=== PATIENT | male | born 1940 | race Caucasian/White ===

== ENCOUNTER → 2021-02-14 13:20 | Outpatient (CLI) | payer MEDICARE, SELFPAY ==
--- NOTE | ~2021-02-14 | XR_ITS ---
XR_[id number] DATE: 02/14/2021 13:45 INDICATION: Neck pain TECHNIQUE: AP, open-mouth, lateral, swimmer views COMPARISON: None FINDINGS: C1 and C2 are normally aligned and the odontoid process is intact. There is degenerative disease throughout the cervical spine, mild at C2-3, moderate at C5-6 and sever e at C3-4, C4-5 and C6-7. No fracture or dislocation or locked facet or prevertebral soft tissue swelling is evident. There is uncovertebral joint spurring throughout the mid and lower cervical spine. 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 Reviewed, dictated and finalized at [facility].
== END ==
PROVIDERS: PCP Family Medicine; Visit Provider Family Medicine
DX: M54.2 Cervicalgia (principal)
CPT/HCPCS: 72040

== ENCOUNTER 2022-05-21 00:25 | Day surgery (SDC) | payer MEDICARE, SELFPAY ==
[2022-05-03 13:04] VITALS: BMI 29.2
[2022-05-21 09:11] VITALS: BP 142/67; PULSE 65; RESP 18; TEMP 36.4; O2SAT 98
[2022-05-21] MEDS: LACTATED RINGERS 1,000 ML 150 ML IV CONT (09:14)
--- NOTE | 2022-05-21 09:44 | PM.IMHP ---
H&P: HPI History of Present Illness Date/Time: 05/21/22 09:44 Chief Complaint: History of colon polyp. Narrative: This is an 82-year-old white male patient who has a history of adenomatous colon polyp removed from the colon in 2014. Patient presents today for neoplasia screening follow-up colonoscopy. He reports his current weight appetite bowel movements are normal. He denies abdominal pain. He has had no bleeding. He has begun to have some memory loss issues. Family history is noncontributory. Review of Systems Review of Systems: Review of systems noncontributory. 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/ Dr. 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 Hx of umbilical hernia repair 1994 Family History Family History Father Heart attack Mother Lung abscess Oxygen dependent Social History Social History Smoking status: Former smoker Tobacco type: pipe Second hand tobacco smoke exposure: No Alcohol intake: former Substance use: never Substance use type: does not use Living arrangements: with family Gender identity (if verbalized by the patient): Male Spiritual care concerns: No Meds Home Medications and Allergies Home Medications Medication Instructions Recorded Confirmed Type finasteride 5 mg tablet 5 mg PO DAILY 09/26/20 05/21/22 History ascorbate calcium (vitamin C) 500 500 mg PO DAILY 02/13/21 05/21/22 History mg tablet calcium carbonate 600 mg calcium 600 mg PO DAILY 02/13/21 05/21/22 History (1,500 mg) tablet (Calcium) cholecalciferol (vitamin D3) 25 25 mcg PO DAILY 02/13/21 05/21/22 History mcg (1,000 unit) capsule vitamin B12 500 mcg-folic acid 400 1 tablet PO DAILY 02/13/21 05/21/22 History mcg tablet lisinopril 20 1 tablet PO DAILY #90 tabs 08/03/21 05/21/22 Rx mg-hydrochlorothiazide 25 mg tablet simvastatin 40 mg tablet 40 mg PO QHS #90 tabs 01/01/22 05/21/22 Rx Allergies Allergy/AdvReac Type Severity Reaction Status Date / Time No Known Allergies Allergy Verified 05/21/22 09:10 Vital Signs Vital Signs - 24 hr 05/21/22 09:11 Temperature 97.6 F Pulse Rate 65 Respiratory Rate 18 Blood Pressure 142/67 H Pulse Oximetry 98 Oxygen Delivery Room Air Exam Narrative: Physical exam reveals patient to be alert. Vital signs stable. HEENT exam is unremarkable. Patient is anicteric. Lungs are clear to auscultation and percussion. Heart is without murmur or extra sounds. Abdominal exam bowel sounds are present soft nontender with no organomegaly. Digital external rectal exam is normal. Assessment and Plan Assessment and plan (1) History of colon polyps: Code(s): Z86.010 - Personal history of colonic polyps Status: Acute Assessment and Plan: Patient has a history of a small tubular adenomatous polyp removed from the colon 2014. He presents today for follow-up examination. Further recommendations will be given after colonoscopy.
--- NOTE | 2022-05-21 10:05 | WPDANESEPPF ---
Anes - Initial Pre Proc Eval Procedure: Operation Date: 05/21/22 10:30 Proposed Procedures p Screening Colonoscopy - Humza Ritchie MD Date/Time: 05/21/22 10:05 Surgeon: uHmza Ritchie MD Pre Op Diagnosis: hx of colon polyps Patient Data Age: 82 Gender: M Height: 1.75 m Weight: 88 kg Last Vital Signs Temp 36.4 C 05/21/22 09:11 Pulse 65 05/21/22 09:11 Resp 18 05/21/22 09:11 BP 142/67 H 05/21/22 09:11 Pulse Ox 98 05/21/22 09:11 O2 Del Method Room Air 05/21/22 09:11 Allergies Allergy/AdvReac Type Severity Reaction Status Date / Time No Known Allergies Allergy Verified 05/21/22 09:10 Home Medications Medication Instructions Recorded Confirmed Type finasteride 5 mg tablet 5 mg PO DAILY 09/26/20 05/21/22 History ascorbate calcium (vitamin C) 500 500 mg PO DAILY 02/13/21 05/21/22 History mg tablet calcium carbonate 600 mg calcium 600 mg PO DAILY 02/13/21 05/21/22 History (1,500 mg) tablet (Calcium) cholecalciferol (vitamin D3) 25 25 mcg PO DAILY 02/13/21 05/21/22 History mcg (1,000 unit) capsule vitamin B12 500 mcg-folic acid 400 1 tablet PO DAILY 02/13/21 05/21/22 History mcg tablet lisinopril 20 1 tablet PO DAILY #90 tabs 08/03/21 05/21/22 Rx mg-hydrochlorothiazide 25 mg tablet simvastatin 40 mg tablet 40 mg PO QHS #90 tabs 01/01/22 05/21/22 Rx Patient hx anesthesia problems: none Family hx anesthesia problems: none Results Review: All pre-operative results and documents have been reviewed as part of the pre-operative evaluation. 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/ Dr. 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 Hx of umbilical hernia repair 1994 Family History Family History Father Heart attack Mother Lung abscess Oxygen dependent Social History Social History Smoking status: Former smoker Tobacco type: pipe Second hand tobacco smoke exposure: No Alcohol intake: former Substance use: never Substance use type: does not use Living arrangements: with family Gender identity (if verbalized by the patient): Male Spiritual care concerns: No Anes - Eval Final PreProcedure Day of Procedure 05/21/22 10:05 Patient weight: overweight Heart: regular rate and rhythm Lungs: clear to auscultation Neurological: alert and oriented ASA classification: III Emergent: no Anesthesia type and monitoring: general GIVS and standard monitoring Results Review: All pre-operative results and documents have been reviewed as part of the pre-operative evaluation. Informed Consent: The patient's anesthetic plan and its attendant risks and benefits were discussed with the patient/family/POA. Questions were solicited and answers provided to the satisfaction of the patient/family/POA.
[2022-05-21 10:54] VITALS: BP 100/68; PULSE 74; RESP 24; O2SAT 98
[2022-05-21 11:04] VITALS: BP 137/76; PULSE 63; RESP 17; O2SAT 100
[2022-05-21 11:16] VITALS: BP 143/71; PULSE 55; RESP 17; O2SAT 99
== END 2022-05-21 11:19 | disposition home or self-care (01) ==
PROVIDERS: PCP Family Medicine; Visit Provider Internal Medicine Gastroenterology
PROC: 0DJD8ZZ Inspection of Lower Intestinal Tract, Via Natural or Artificial Opening Endoscopic (ICD-10-PCS; CPT 45378; principal; 2022-05-21 10:30)
DX: Z12.11 Encounter for screening for malignant neoplasm of colon (principal); K64.8 Other hemorrhoids; K57.30 Diverticulosis of large intestine without perforation or abscess without bleeding; Z86.010 Personal history of colon polyps; I10 Essential (primary) hypertension; E78.5 Hyperlipidemia, unspecified; G47.33 Obstructive sleep apnea (adult) (pediatric); R73.03 Prediabetes; Z85.72 Personal history of non-Hodgkin lymphomas; Z87.891 Personal history of nicotine dependence
CPT/HCPCS: G0105; J2704; J7120

== ENCOUNTER 2022-10-16 11:44 | Outpatient (CLI) | payer MEDICARE, SELFPAY ==
[2022-10-16 19:44] LABS: Hemoglobin A1C 5.4 % (<5.7)
[2022-10-16 19:56] LABS: Basophils Absolute Auto 0.1 K/mm3 (0.0-0.1); Basophils Percent Auto 1.3 % (0.2-1.2); Eosinophils Absolute Auto 0.3 K/mm3 (0-0.3); Eosinophils Percent Auto 3.2 % (0-4.4); Hemoglobin 14.4 g/dL (14.0-18.0); Immature Granulocyte Absolute 0.04 K/mm3 (0.00-0.031); Immature Granulocyte Percent A 0.5 % (0-0.5); Immature Platelet Fraction Pct 5.8 % (0.9-11.2); Lymphocytes Absolute Auto 2.36 K/mm3 (0.9-3.2); Lymphocytes Percent Auto 28.4 % (18.3-44.2); Mean Corpuscular HGB Conc 32.7 g/dl (32-36); Mean Corpuscular Hemoglobin 31.8 pg (26-34); Mean Corpuscular Volume 97.1 fl (80-100); Mean Platelet Volume 11.8 fl (7.4-10.4); Monocytes Percent Auto 11.5 % (2.6-8.5); Neutrophils Absolute Auto 4.6 K/mm3 (1.3-6.7); Neutrophils Percent Auto 55.1 % (45.5-73.1); Platelet Count Result 263 k/mm3 (150-375); Red Blood Count 4.53 M/mm3 (4.6-6.20); Red Cell Distribution Width 14.9 % (11.5-14.5); White Blood Count 8.3 K/mm3 (4.5-10.0)
[2022-10-16 19:59] LABS: Alanine Aminotransferase 22 U/L (6-50); Albumin Level 4.1 g/dL (3.5-5.1); Alkaline Phosphatase 78 U/L (38-126); Anion Gap 9 mmol/L (8-16); Aspartate Amino Transferase 30 U/L (17-59); Bilirubin,Total 0.8 mg/dL (0.2-1.3); Blood Urea Nitrogen 17 mg/dL (9-20); Calcium 9.6 mg/dL (8.4-10.2); Carbon Dioxide 29 mmol/L (22-30); Chloride 101 mmol/L (98-107); Cholesterol 132 mg/dL (0-200); Estimated Glomerular Filt Rate 58; Glucose 99 mg/dL (65-110); HDL Direct 48 mg/dL; Potassium 3.9 mmol/L (3.4-5.0); Sodium 139 mmol/L (137-145); Triglycerides 89 mg/dL (<150)
[2022-10-16 20:09] LABS: Platelet Estimate Adequate (Adequate)
[2022-10-16 20:10] LABS: Acanthocytes 1+ (NORMAL); LDL Cholesterol Direct 57 mg/dL; Ovalocytes 1+ (NORMAL)
[2022-10-16 20:11] LABS: Schistocytes None Seen (NORMAL)
[2022-10-16 20:23] LABS: Vitamin D 25 Hydroxy 39.6 ng/mL
== END 2022-10-16 11:45 | disposition home or self-care (01) ==
LOC: ANHGOSHLAB 11:50
PROVIDERS: PCP Family Medicine; Visit Provider Family Medicine
DX: E78.5 Hyperlipidemia, unspecified (principal); I10 Essential (primary) hypertension; Z79.899 Other long term (current) drug therapy; R73.03 Prediabetes; Z12.5 Encounter for screening for malignant neoplasm of prostate; E55.9 Vitamin D deficiency, unspecified; E53.8 Deficiency of other specified B group vitamins
CPT/HCPCS: 36415; 80053; 80061; 82306; 82607; 83036; 84153; 84443; 85025; 85055; G0103

== ENCOUNTER 2022-12-06 10:38 | Emergency (ER) | payer MEDICARE, SELFPAY ==
--- NOTE | ~2022-12-06 | XR_ITS ---
Cervical Spine: AP, lateral, open-mouth views Clinical History: Pain COMPARISON: 02/14/2021 Findings: The normal lordotic curve is maintained. No fracture or subluxation identified. There is mo derate degenerative disc narrowing at C4-C5 and C6-C7. There is mild degenerative disc narrowing at C 3-C4. Pre-vertebral soft tissues are unremarkable. Impression: Degenerative changes, as above, similar to prior exam. No acute abnormality seen. Reviewed, dictated and finalized at location . [employer] Impression: Degenerative changes, as above, similar to prior exam. No acute abnormality seen.
[2022-12-06 10:48] VITALS: BP 152/76; PULSE 62; RESP 16; TEMP 36.4; O2SAT 98
--- NOTE | 2022-12-06 10:54 | ED.GENADULT ---
HPI - General Adult General Chief complaint: Neck Pain/Injury Stated complaint: NECK PAIN Time Seen by Provider: 12/06/22 10:54 Source: patient Mode of arrival: ambulatory Limitations: no limitations History of Present Illness HPI narrative: 82-year-old male presents with complaint of posterior neck pain for several weeks. Reports that he had same problem last year saw his PCP and was sent to physical therapy. He states that physical therapy never helped. He has been doing stretches on his own without any relief. He intermittently takes Tylenol or ibuprofen but does not want to take too much of an [id number] medication. He states neck muscles are tight and when he opens his mouth too far to eat it makes the pain worse. Denies jaw pain. No injury. Ambulatory with steady gait. Denies dizziness, headache, vision changes. Afebrile. All systems reviewed and negative except as noted above. Related Data Home Medications Medication Instructions Recorded Confirmed finasteride 5 mg tablet 5 mg PO DAILY 09/26/20 12/06/22 ascorbate calcium (vitamin C) 500 500 mg PO DAILY 02/13/21 12/06/22 mg tablet calcium carbonate 600 mg calcium 600 mg PO DAILY 02/13/21 12/06/22 (1,500 mg) tablet (Calcium) cholecalciferol (vitamin D3) 25 25 mcg PO DAILY 02/13/21 12/06/22 mcg (1,000 unit) capsule vitamin B12 500 mcg-folic acid 400 1 tablet PO DAILY 02/13/21 12/06/22 mcg tablet Allergies Allergy/AdvReac Type Severity Reaction Status Date / Time No Known Allergies Allergy Verified 10/16/22 10:21 Review of Systems Review of Systems: CONSTITUTIONAL: Denies fever, chills, or sweats. EYES: Denies visual changes, redness, or discharge. ENT: Denies rhinorrhea, congestion, sore throat, or otalgia. CARDIOVASCULAR: Denies chest pain, palpitations, or edema. RESPIRATORY: Denies cough or dyspnea. GASTROINTESTINAL: Denies abdominal pain, nausea, vomiting, or diarrhea. GENITOURINARY: Denies dysuria or hematuria. SKIN: Denies rash or itching. MUSCULOSKELETAL: Denies back pain, joint pain, or myalgia. Reports posterior neck pain NEUROLOGIC: Denies headache, numbness, or weakness. PSYCHIATRIC: Denies anxiety or depression. All other systems reviewed are negative, except as documented in HPI. 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/ Dr. 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 Hx of umbilical hernia repair 1994 Family History Family History Father Heart attack Mother Lung abscess Oxygen dependent Social History Social History Smoking status: Former smoker Tobacco type: pipe Second hand tobacco smoke exposure: No Alcohol intake: former Substance use: never Substance use type: does not use Lack of Transportation: No Lack of Food: Never True Current Housing: I Have Housing Concerned About Future Housing: No Difficulty Paying Gas/Electric Bills: No Difficulty Paying for Meds: No Currently Unemployed: No Education: Decline to Answer Difficulty w/ Childcare or Family Care: No Gender identity (if verbalized by the patient): Male
== END 2022-12-06 11:49 | disposition home or self-care (01) ==
PROVIDERS: Emergency Provider Nurse Practitioner Family; PCP Family Medicine
DX: S16.1XXA Strain of muscle, fascia and tendon at neck level, initial encounter (principal); X58.XXXA Exposure to other specified factors, initial encounter; M47.812 Spondylosis without myelopathy or radiculopathy, cervical region; Z87.891 Personal history of nicotine dependence; E78.5 Hyperlipidemia, unspecified; I10 Essential (primary) hypertension; R73.03 Prediabetes; Z85.72 Personal history of non-Hodgkin lymphomas
CPT/HCPCS: 72050; 99213; G0463

== ENCOUNTER 2023-04-16 10:22 | Outpatient (CLI) | payer MEDICARE, SELFPAY ==
[2023-04-16 20:51] LABS: Alanine Aminotransferase 25 U/L (6-50); Albumin Level 3.8 g/dL (3.5-5.1); Alkaline Phosphatase 63 U/L (38-126); Anion Gap 4 mmol/L (8-16); Aspartate Amino Transferase 47 U/L (17-59); Bilirubin,Total 0.8 mg/dL (0.2-1.3); Blood Urea Nitrogen 18 mg/dL (9-20); Calcium 8.8 mg/dL (8.4-10.2); Carbon Dioxide 34 mmol/L (22-30); Chloride 103 mmol/L (98-107); Estimated Glomerular Filt Rate 58; Glucose 81 mg/dL (65-110); Potassium 4.2 mmol/L (3.4-5.0); Sodium 141 mmol/L (137-145)
[2023-04-16 21:20] LABS: Hemoglobin A1C 5.3 % (<5.7)
== END 2023-04-16 10:23 | disposition home or self-care (01) ==
LOC: ANHGOSHLAB 10:23
PROVIDERS: PCP Family Medicine; Visit Provider Family Medicine
DX: I10 Essential (primary) hypertension (principal); R73.03 Prediabetes
CPT/HCPCS: 36415; 80053; 83036

== ENCOUNTER 2023-10-22 10:16 | Outpatient (CLI) | payer MEDICARE, SELFPAY ==
[2023-10-22 12:03] LABS: Basophils Absolute Auto 0.1 K/mm3 (0.0-0.1); Basophils Percent Auto 1.1 % (0.2-1.2); Eosinophils Absolute Auto 0.4 K/mm3 (0-0.3); Eosinophils Percent Auto 3.5 % (0-4.4); Hematocrit 42.5 % (42.0-52.0); Hemoglobin 14.2 g/dL (14.0-18.0); Immature Granulocyte Absolute 0.06 K/mm3 (0.00-0.031); Immature Granulocyte Percent A 0.5 % (0-0.5); Lymphocytes Absolute Auto 2.54 K/mm3 (0.9-3.2); Lymphocytes Percent Auto 22.9 % (18.3-44.2); Mean Corpuscular HGB Conc 33.4 g/dl (32-36); Mean Corpuscular Hemoglobin 30.9 pg (26-34); Mean Corpuscular Volume 92.6 fl (80-100); Mean Platelet Volume 11.1 fl (7.4-10.4); Monocytes Absolute Auto 1.3 K/mm3 (0.1-0.6); Monocytes Percent Auto 11.8 % (2.6-8.5); Neutrophils Absolute Auto 6.7 K/mm3 (1.3-6.7); Neutrophils Percent Auto 60.2 % (45.5-73.1); Platelet Count Result 282 k/mm3 (150-375); Red Blood Count 4.59 M/mm3 (4.6-6.20); Red Cell Distribution Width 13.9 % (11.5-14.5); White Blood Count 11.1 K/mm3 (4.5-10.0)
[2023-10-22 12:15] LABS: Alanine Aminotransferase 24 U/L (6-50); Albumin Level 3.7 g/dL (3.5-5.1); Alkaline Phosphatase 83 U/L (38-126); Anion Gap 10 mmol/L (8-16); Aspartate Amino Transferase 36 U/L (17-59); Bilirubin,Total 1.2 mg/dL (0.2-1.3); Blood Urea Nitrogen 14 mg/dL (9-20); Calcium 9.1 mg/dL (8.4-10.2); Carbon Dioxide 29 mmol/L (22-30); Chloride 103 mmol/L (98-107); Cholesterol 132 mg/dL (0-200); Estimated Glomerular Filt Rate > 60; Glucose 105 mg/dL (65-110); HDL Direct 35 mg/dL; Potassium 3.3 mmol/L (3.4-5.0); Sodium 142 mmol/L (137-145); Triglycerides 100 mg/dL (<150)
[2023-10-22 12:26] LABS: LDL Cholesterol Direct 71 mg/dL
[2023-10-22 12:45] LABS: Prostate Specific Antigen 3.8 ng/mL (< OR = 4.0)
[2023-10-22 12:47] LABS: Hemoglobin A1C 5.5 % (<5.7)
[2023-10-22 13:02] LABS: Vitamin D 25 Hydroxy 55.4 ng/mL
== END 2023-10-22 10:17 | disposition home or self-care (01) ==
PROVIDERS: PCP Family Medicine; Visit Provider Family Medicine
DX: E78.5 Hyperlipidemia, unspecified (principal); I10 Essential (primary) hypertension; E55.9 Vitamin D deficiency, unspecified; R73.03 Prediabetes; E53.8 Deficiency of other specified B group vitamins; Z12.5 Encounter for screening for malignant neoplasm of prostate
CPT/HCPCS: 36415; 80053; 80061; 82306; 82607; 83036; 84153; 84443; 85025; G0103

== ENCOUNTER 2024-07-14 15:55 | Outpatient (CLI) | payer MEDICARE, SELFPAY ==
[2024-07-14 20:50] LABS: Alanine Aminotransferase 19 U/L (6-50); Albumin Level 3.8 g/dL (3.5-5.1); Alkaline Phosphatase 63 U/L (38-126); Anion Gap 6 mmol/L (4-12); Aspartate Amino Transferase 36 U/L (17-59); Bilirubin,Total 0.7 mg/dL (0.2-1.3); Blood Urea Nitrogen 21 mg/dL (9-20); Calcium 9.2 mg/dL (8.4-10.2); Carbon Dioxide 32 mmol/L (22-30); Chloride 101 mmol/L (98-107); Estimated Glomerular Filt Rate 52; Glucose 97 mg/dL (65-110); Potassium 3.9 mmol/L (3.4-5.0); Sodium 139 mmol/L (137-145)
[2024-07-14 22:21] LABS: Hemoglobin A1C 5.6 % (<5.7)
== END 2024-07-14 15:56 | disposition home or self-care (01) ==
LOC: ANHGOSHLAB 15:56
PROVIDERS: PCP Family Medicine; Visit Provider Family Medicine
DX: I10 Essential (primary) hypertension (principal); R73.03 Prediabetes
CPT/HCPCS: 36415; 80053; 83036

== ENCOUNTER 2024-11-01 15:38 | Outpatient (CLI) | payer MEDICARE, SELFPAY ==
[2024-11-01 19:59] LABS: Basophils Absolute Auto 0.1 K/mm3 (0.0-0.1); Basophils Percent Auto 1.2 % (0.2-1.2); Eosinophils Absolute Auto 0.4 K/mm3 (0-0.3); Eosinophils Percent Auto 3.5 % (0-4.4); Hematocrit 42.8 % (42.0-52.0); Hemoglobin 14.6 g/dL (14.0-18.0); Immature Granulocyte Absolute 0.05 K/mm3 (0.00-0.031); Immature Granulocyte Percent A 0.5 % (0-0.5); Lymphocytes Percent Auto 26.3 % (18.3-44.2); Mean Corpuscular HGB Conc 34.1 g/dl (32-36); Mean Corpuscular Hemoglobin 31.5 pg (26-34); Mean Corpuscular Volume 92.4 fl (80-100); Monocytes Absolute Auto 1.2 K/mm3 (0.1-0.6); Monocytes Percent Auto 11.4 % (2.6-8.5); Neutrophils Absolute Auto 5.9 K/mm3 (1.3-6.7); Neutrophils Percent Auto 57.1 % (45.5-73.1); Platelet Count Result 275 k/mm3 (150-375); Red Blood Count 4.63 M/mm3 (4.6-6.20); Red Cell Distribution Width 14.8 % (11.5-14.5); White Blood Count 10.3 K/mm3 (4.5-10.0)
[2024-11-01 20:06] LABS: Alanine Aminotransferase 23 U/L (6-50); Albumin Level 4.1 g/dL (3.5-5.1); Alkaline Phosphatase 91 U/L (38-126); Anion Gap 4 mmol/L (4-12); Aspartate Amino Transferase 56 U/L (17-59); Bilirubin,Total 1.1 mg/dL (0.2-1.3); Blood Urea Nitrogen 21 mg/dL (9-20); Calcium 9.6 mg/dL (8.4-10.2); Carbon Dioxide 33 mmol/L (22-30); Chloride 103 mmol/L (98-107); Cholesterol 133 mg/dL (0-200); Estimated Glomerular Filt Rate > 60; Glucose 94 mg/dL (65-110); HDL Direct 48 mg/dL; Potassium 3.7 mmol/L (3.4-5.0); Sodium 140 mmol/L (137-145); Triglycerides 84 mg/dL (<150)
[2024-11-01 20:17] LABS: LDL Cholesterol Direct 54 mg/dL
[2024-11-01 20:29] LABS: Vitamin D 25 Hydroxy 45.7 ng/mL
[2024-11-01 20:38] LABS: Prostate Specific Antigen 4.5 ng/mL (< OR = 4.0)
[2024-11-01 20:58] LABS: Vitamin B12 > 1000.0 pg/mL (239-931)
[2024-11-01 22:24] LABS: Hemoglobin A1C 5.6 % (<5.7)
== END 2024-11-01 15:39 | disposition home or self-care (01) ==
LOC: ANHGOSHLAB 15:39
PROVIDERS: PCP Family Medicine; Visit Provider Family Medicine
DX: E78.5 Hyperlipidemia, unspecified (principal); I10 Essential (primary) hypertension; R73.03 Prediabetes; E53.8 Deficiency of other specified B group vitamins; E55.9 Vitamin D deficiency, unspecified; Z12.5 Encounter for screening for malignant neoplasm of prostate
CPT/HCPCS: 36415; 80053; 80061; 82306; 82607; 83036; 84153; 84443; 85025; G0103

== ENCOUNTER 2025-05-02 11:37 | Outpatient (CLI) | payer MEDICARE, SELFPAY ==
[2025-05-02 14:28] LABS: Basophils Absolute Auto 0.1 K/mm3 (0.0-0.1); Basophils Percent Auto 1.2 % (0.2-1.2); Eosinophils Absolute Auto 0.3 K/mm3 (0-0.3); Eosinophils Percent Auto 3.7 % (0-4.4); Hematocrit 41.2 % (42.0-52.0); Hemoglobin 13.7 g/dL (14.0-18.0); Immature Granulocyte Absolute 0.03 K/mm3 (0.00-0.031); Immature Granulocyte Percent A 0.3 % (0-0.5); Lymphocytes Absolute Auto 2.17 K/mm3 (0.9-3.2); Mean Corpuscular HGB Conc 33.3 g/dl (32-36); Mean Corpuscular Hemoglobin 31.5 pg (26-34); Mean Corpuscular Volume 94.7 fl (80-100); Mean Platelet Volume 11.7 fl (7.4-10.4); Monocytes Absolute Auto 1.1 K/mm3 (0.1-0.6); Monocytes Percent Auto 11.7 % (2.6-8.5); Neutrophils Absolute Auto 5.3 K/mm3 (1.3-6.7); Neutrophils Percent Auto 59.1 % (45.5-73.1); Platelet Count Result 253 k/mm3 (150-375); Red Blood Count 4.35 M/mm3 (4.6-6.20); Red Cell Distribution Width 14.7 % (11.5-14.5)
[2025-05-02 14:43] LABS: Alanine Aminotransferase 17 U/L (6-50); Albumin Level 3.9 g/dL (3.5-5.1); Alkaline Phosphatase 75 U/L (38-126); Anion Gap 7 mmol/L (4-12); Aspartate Amino Transferase 52 U/L (17-59); Bilirubin,Total 0.8 mg/dL (0.2-1.3); Blood Urea Nitrogen 20 mg/dL (9-20); Calcium 9.7 mg/dL (8.4-10.2); Carbon Dioxide 32 mmol/L (22-30); Chloride 103 mmol/L (98-107); Estimated Glomerular Filt Rate 56; Glucose 94 mg/dL (65-110); Potassium 3.6 mmol/L (3.4-5.0); Sodium 142 mmol/L (137-145)
[2025-05-02 14:49] LABS: Hemoglobin A1C 5.5 % (<5.7)
== END 2025-05-02 11:38 | disposition home or self-care (01) ==
LOC: ANHGOSHLAB 11:38
PROVIDERS: PCP Family Medicine; Visit Provider Family Medicine
DX: R73.03 Prediabetes (principal); I10 Essential (primary) hypertension; Z85.72 Personal history of non-Hodgkin lymphomas
CPT/HCPCS: 36415; 80053; 83036; 85025

== ENCOUNTER 2025-11-08 09:45 | Outpatient (CLI) | payer MEDICARE, SELFPAY ==
[2025-11-08 12:59] LABS: Hematocrit 39.3 % (42.0-52.0); Hemoglobin 13.3 g/dL (14.0-18.0); Immature Granulocyte Percent A 0.4 % (0-0.5); Lymphocytes Absolute Auto 2.13 K/mm3 (0.9-3.2); Mean Corpuscular HGB Conc 33.8 g/dl (32-36); Mean Corpuscular Hemoglobin 31.8 pg (26-34); Mean Corpuscular Volume 94.0 fl (80-100); Nucleated Red Blood Cells Absolute Auto 0.000 K/mm3 (0.0-0.012); Nucleated Red Blood Cells Perc 0.0 % (0.0-0.2); Platelet Count Result 236 k/mm3 (150-375); Red Blood Count 4.18 M/mm3 (4.6-6.20); White Blood Count 9.8 K/mm3 (4.5-10.0)
[2025-11-08 13:08] LABS: Alanine Aminotransferase 19 U/L (6-50); Albumin Level 4.0 g/dL (3.5-5.1); Alkaline Phosphatase 78 U/L (38-126); Anion Gap 5 mmol/L (4-12); Aspartate Amino Transferase 45 U/L (17-59); Bilirubin,Total 1.1 mg/dL (0.2-1.3); Blood Urea Nitrogen 18 mg/dL (9-20); Calcium 9.4 mg/dL (8.4-10.2); Carbon Dioxide 30 mmol/L (22-30); Chloride 104 mmol/L (98-107); Cholesterol 134 mg/dL (0-200); Estimated Glomerular Filt Rate > 60; Glucose 92 mg/dL (65-110); HDL Direct 57 mg/dL; Magnesium 1.5 mg/dL (1.6-2.3); Potassium 3.8 mmol/L (3.4-5.0); Sodium 139 mmol/L (137-145); Total Protein 7.5 g/dL (6.3-8.2); Triglycerides 64 mg/dL (<150)
[2025-11-08 13:47] LABS: Thyroid Stimulating Hormone Reflex 2.310 uIU/mL (0.465-4.68)
[2025-11-08 13:55] LABS: Add Urine Microscopic? YES; Appearance Urine Cloudy (Clear); Glucose Urine UA Negative (Negative); Leukocyte Esterase Ur 3+ LEU/UL (Negative); Nitrate Urine Negative (Negative); Non Pathogenic Casts 0-2; Specific Grav Ur 1.016 (1.001-1.035)
[2025-11-08 14:04] LABS: Vitamin B12 934.0 pg/mL (239-931)
[2025-11-08 15:36] LABS: Iron 65 ug/dL (49-181)
[2025-11-08 15:46] LABS: Percent Iron Saturation 24 % (20-50)
[2025-11-08 17:43] LABS: Ferritin 99.70 ng/mL (11.1-264)
[2025-11-08 17:51] LABS: Hemoglobin A1C 5.3 % (<5.7)
== END 2025-11-08 09:46 | disposition home or self-care (01) ==
PROVIDERS: PCP Family Medicine; Visit Provider Nurse Practitioner Family
DX: E78.5 Hyperlipidemia, unspecified (principal); R73.03 Prediabetes; I10 Essential (primary) hypertension; E55.9 Vitamin D deficiency, unspecified; R30.0 Dysuria; D64.9 Anemia, unspecified
CPT/HCPCS: 36415; 80053; 80061; 81001; 82306; 82607; 82728; 83036; 83540; 83550; 83735; 84443; 85025

== ENCOUNTER 2025-11-29 09:13 | Outpatient (CLI) | payer MEDICARE, SELFPAY | END 2025-11-29 09:14 | disposition home or self-care (01) | PROVIDERS: PCP Family Medicine; Visit Provider Nurse Practitioner Family | DX: N39.0 Urinary tract infection, site not specified (principal) | CPT/HCPCS: 87086 ==